=== PATIENT | female | born 1975 | race Caucasian/White ===

== ENCOUNTER 2017-12-01 20:00 | Emergency (ER) | payer BC ==
[~2017-12-01] VITALS: Ht 172.7 cm; Wt 98.2 kg
[~2017-12-01 20:00] MED LIST: ASPIR 8181 M1 PO; CEFTIN250 MG PO; CENTRUM SPECIA PO; CIPRO500 MG PO; DIABETA2.5 MG PO; FLOMAX0.4 MG PO; GLYBURIDE1.25 MG PO; MICRONASE2.5 MG PO; NO HOME MEDS; PERCOCET 5/31 TABLET PO; PRENATAL TABLE1 EAC3 PO
[2017-12-01 20:26] LABS: HEMATOCRIT 41.7 % (36.0-46.0); HEMOGLOBIN 13.8 G/DL (11.9-15.5); MCH 25.5 PG (29.0-34.0); MCHC 33.1 G/DL (30.0-36.0); MCV 76.9 FL (83-99); PLATELET COUNT 225 K/uL (156-360); RBC DIS.WIDTH-CV 14.1 % (11.8-14.6); RED BLOOD COUNT 5.42 M/uL (3.80-5.20); WHITE BLOOD COUNT 9.9 K/uL (4.1-10.2)
[2017-12-01 20:34] LABS: APPEARANCE CLEAR ((CLEAR)); BILIRUBIN NEGATIVE; BLOOD SMALL; COLOR YELLOW ((YELLOW)); GLUCOSE (STRIP) NEGATIVE; KETONES NEGATIVE; LEUKOCYTES NEGATIVE; NITRITE NEGATIVE; PROTEIN (STRIP) NEGATIVE; SPECIFIC GRAVITY 1.017 (1.000-1.030); UROBILINOGEN 0.2 MG/DL (0.2-1.0)
[2017-12-01 20:38] LABS: BACTERIA NONE SEEN /HPF; EPITHELIAL CELLS RARE /HPF; MUCUS 2+ /LPF; RED BLOOD CELLS 0-5 /HPF (0-5); UCUL ADDED? NO; WHITE BLOOD CELLS 0-5 /HPF (0-5)
[2017-12-01 20:38] LABS: ALBUMIN 4.4 g/dL (3.2-4.8); CHLORIDE 105 mEq/L (99-109); POTASSIUM 4.1 mEq/L (3.7-5.4); SODIUM 139 mEq/L (136-147)
[2017-12-01 20:40] LABS: GLUCOSE 104 mg/dL (70-99); TOTAL PROTEIN 7.8 g/dL (6.4-8.3)
[2017-12-01 20:42] LABS: TOTAL BILIRUBIN 0.8 mg/dL (0.0-1.0)
[2017-12-01 20:44] LABS: ALKALINE PHOSPHATASE 94 IU/L (3-129); CREATININE 0.8 mg/dL (0.6-1.3); GFR ESTIMATE (CALCULATED) > 59 mL/min/
[2017-12-01 20:45] LABS: UREA NITROGEN (BUN) 11 mg/dL (9-23)
[2017-12-01 20:46] LABS: AST (GOT) 15 IU/L (2-34)
[2017-12-01 20:47] LABS: ALT (GPT) 11 IU/L (3-49)
[2017-12-01 20:54] LABS: QUANTITATIVE HCG < 4.0 MIU/ML
[2017-12-02] MEDS ORDERED: FLAGYL500 MG PO (01:57)
[2017-12-02] MEDS ORDERED: CIPRO500 MG PO (01:57)
[2017-12-02] MEDS ORDERED: MOTRIN800 MG PO (01:58)
[2017-12-02] MEDS ORDERED: ULTRAM50 MG PO (01:58)
[2017-12-02 02:45] VITALS: BP 134/78
== END 2017-12-02 02:54 | disposition home or self-care (01) ==
LOC: EME 20:00
DX: K57.32 Diverticulitis of large intestine without perforation or abscess without bleeding (principal); Z87.442 Personal history of urinary calculi; Z88.1 Allergy status to other antibiotic agents; Z88.0 Allergy status to penicillin
CPT/HCPCS: 74177; 80053; 81003; 84702; 85027; J1885; J7040